=== PATIENT | male | born 1955 | race Caucasian/White ===

== ENCOUNTER 2020-09-30 18:13 | Emergency (ER) | payer MEDICARE ==
[2020-09-30] MEDS ORDERED: methylPREDNISolone Sod Succ 125 MG in Dextrose 5% in Water 100 ML IV ONE ×2 (19:00)
--- NOTE | 2020-09-30 19:04 | EDM.PDOC ---
ED HPI GENERAL MEDICAL PROBLEM - General Chief Complaint: Allergic Reaction Stated Complaint: MED[facility] Time Seen by Provider: 09/30/20 18:27 Source of Information: Reports: Patient, EMS Notes Reviewed, Family ( at bedside), RN History Limitations: Reports: No Limitations - History of Present Illness INITIAL COMMENTS - FREE TEXT/NARRATIVE: Patient presents emergency room via EMS secondary to a sting reaction that occurred. [place] the [place] stung him on his right elbow he is not sure what the insect was. He does state that he was stung approximately 3 weeks ago by a bee and had no problems or reactions of concern. He states that he had eye swelling tongue swelling chest tightness and hands itching. States he also feels like his upper lip and his nose is numb and he initially had some hives on his abdomen. States that he took 50 of Benadryl oral as well as 2 Pepcid [id number] tablets as recommended by a medic that was at the park when incident occurred. EMS was called and an EpiPen was administered x1 as well as 25 mg of Benadryl was given IV. Patient states that abdominal itching hives have improved he does not have the chest tightness his tongue still feels swollen as well as his eyes/eyelids are swollen he says his nose is somewhat numb and numb still as well as his upper lip PMH--HTN, HLP, decreased hearing, GERD Meds--lisionopril, atorvastatin, norvasc, ASA, pepcid, MVI Tob--former EtOH--2-3 drinks/day Drugs--denies has not had COVID infection, reports receiving the COVID immunization - Related Data Allergies Allergy/AdvReac Type Severity Reaction Status Date / Time No Known Allergies Allergy Verified 09/30/20 18:16 Home Meds: Home Meds Calcium Carbonate [Calcium] 500 mg PO BEDTIME 09/30/20 [History] Lisinopril/Hydrochlorothiazide [Lisinopril-Hctz 20-25 mg Tab] 1 tab PO DAILY 09/30/20 [History] amLODIPine [Norvasc] 10 mg PO DAILY 09/30/20 [History] atorvaSTATin [Lipitor] 20 mg PO DAILY 09/30/20 [History] Past Medical History Cardiovascular History: Reports: Hypertension Gastrointestinal History: Reports: None - Past Surgical History Head Surgeries/Procedures: Reports: None Cardiovascular Surgical History: Reports: None GI Surgical History: Reports: Hernia Repair/Other Dermatological Surgical History: Reports: None Social & Family History - Tobacco Use Tobacco Use Status *Q: Former Tobacco User Years of Tobacco use: 20 Used Tobacco, but Quit: Yes Month/Year Tobacco Last Used: 1989 - Caffeine Use Caffeine Use: Reports: Coffee, Soda - Alcohol Use Days Per Week of Alcohol Use: 7 Number of Drinks Per Day: 2 Total Drinks Per Week: 14 - Recreational Drug Use Recreational Drug Use: No ED ROS ALLERGIC REACTION - Review of Systems Review Of Systems: Comprehensive ROS is negative, except as noted in HPI. HEENT: Reports: Other (With noted sensation of tongue swelling lip and nose numbness denies any throat swelling scratchiness or discomfort discomfort or feeling like it swelling shot also reports eyelid swelling) Respiratory: Reports: No Symptoms. Denies: Shortness of Breath, Wheezing, Cough Cardiovascular: Reports: Other (Reported chest tightness sensation after initial sting occurred) Skin: Reports: Other (Reports hands itchy hives on his abdomen initially after sting occurred) ED EXAM GENERAL NO PERIP PULSE - Physical Exam Exam: See Below Exam Limited By: No Limitations General Appearance: Alert, WD/WN, No Apparent Distress Eye Exam: Bilateral Eye: EOMI, Periorbital Changes (As noted bilateral eyelid edema Slee upper lids but also noted in the lower lid area), PERRL Ears: Normal External Exam, Normal Canal, Hearing Grossly Normal, Normal TMs Nose: Normal Inspection, Normal Mucosa Throat/Mouth: Normal Inspection, Normal Lips, Normal Teeth, Normal Gums, Normal Oropharynx, No Airway Compromise, Other (As noted tongue thickening/swelling each is noted to be somewhat thick in nature but it is understandable) Head: Atraumatic, Normocephalic Neck: Normal Inspection, Supple, Non-Tender, Full Range of Motion. No: Limited Range of Motion, Lymphadenopathy (R), Lymphadenopathy (L) Respiratory/Chest: Lungs Clear (No wheeze to exam no wheeze to forced expiration), Normal Breath Sounds, Other (Is noted to be on oxygen therapy 2 L nasal cannula as received from EMS he is satting 93 to 94% no respiratory difficulty shortness of breath). No: No Respiratory Distress Cardiovascular: Normal Peripheral Pulses, Regular Rate, Rhythm, No Murmur GI/Abdominal: Normal Bowel Sounds, Soft, Non-Tender, No Distention (Male) Exam: Deferred Rectal (Males) Exam: Deferred Back Exam: Normal Inspection, Full Range of Motion Extremities: Normal Inspection, Normal Range of Motion, No Pedal Edema, Normal Capillary Refill, Other (With noted right elbow tenderness on palpation secondary to sting injury and some mild edema in the area) Neurological: Alert, Oriented, CN II-XII Intact, Normal Cognition, Normal Gait, Normal Reflexes, No Motor/Sensory Deficits Psychiatric: Normal Affect, Normal Mood Skin Exam: Warm, Dry, Intact, Normal Color, No Rash Course - Vital Signs Text/Narrative:: 1952--recheck patient states he feels improved no longer feels like he has the tongue or lip swelling sensation he does have some minimal eyelid swelling denie s any lip or nose numbness at this time. At this time we will remove patient from oxygen therapy that was placed he has received IV Solu-Medrol by nursing here in the emergency room. If able to tolerate ambulation without any need for supplemental oxygen as long as pulse ox greater than 90% we will plan for discharge within the next hour patient and verbalized understanding agreement with plan of care 2011--RN walked patient in [place] with pulse oximetry noted to have pulse ox of 94% on room air with ambulation no respiratory difficulty was noted at this time patient will be ready for discharge Last Recorded V/S: Last Vital Signs Temp 98.8 F 09/30/20 18:21 Pulse 99 09/30/20 18:21 Resp 18 09/30/20 18:21 BP 147/82 H 09/30/20 18:21 Pulse Ox 92 L 09/30/20 18:21 - Orders/Labs/Meds Meds: Medications Discontinued Medications Generic Name Dose Route Start Last Admin Trade Name Freq PRN Reason Stop Dose Admin Methylprednisolone Sodium 102 mls @ 200 mls/hr 09/30/20 19:00 09/30/20 19:15 Succinate 125 mg/ Dextrose/ IV 09/30/20 19:31 200 mls/hr Water ONETIME ONE Administration Departure - Departure Time of Disposition: 20:13 Disposition: Home, Self-Care 01 Condition: Good Clinical Impression: Insect sting allergy, current reaction - Discharge Information *PRESCRIPTION DRUG MONITORING PROGRAM REVIEWED*: Not Applicable *COPY OF PRESCRIPTION DRUG MONITORING REPORT IN PATIENT ROSANGELA: Not Applicable Instructions: Bronchospasm, Adult, [id number], Anaphylactic Reaction, Adult Referrals: PCP,None [Primary Care Provider] - Forms: ED Department Discharge Additional Instructions: [id number] Benadryl these are 25 mg tablets take 1-2 capsules every 6 hours for the next 24 to 48 hours and then as needed. Please note that this medication will cause drowsiness and you should not drive when taking this medication [id number] Pepcid or famotidine take 20 mg twice a day for the next 1 to 2 days and then as needed You have been provided a prescription for a zone tablets, this is a tapering dose take all tablets in the morning with breakfast starting tomorrow morning You have been provided a prescription for EpiPen's, is recommended that you take this to your primary care clinic for further instruction on use by the clinic nurse as they usually have a demonstration package available or the pharmacist may be able to provide demonstration instructions for you please ask when picking up the medications It is recommended that you follow-up with your primary care provider in the next 3 to 5 days for today's ER visit and ongoing care regarding insect allergy, likely bee sting allergy reaction and need for further testing as this may require referral to allergy medicine May use ice/cold compresses to your right elbow for any pain swelling or discomfort this should subside in the next 7 to 10 days as reaction symptoms improve Sepsis Event Note (ED) - Evaluation Sepsis Screening Result: No Definite Risk - Focused Exam Vital Signs: Vital Signs Temp Pulse Resp BP Pulse Ox 09/30/20 18:21 98.8 F 99 18 147/82 H 92 L 09/30/20 18:18 98.8 F 99 18 147/82 H 92 L
== END 2020-09-30 20:34 | disposition home or self-care (01) ==
LOC: JP.ED 18:13
DX: S50.361A Insect bite (nonvenomous) of right elbow, initial encounter (principal); K21.9 Gastro-esophageal reflux disease without esophagitis; I10 Essential (primary) hypertension; Z79.82 Long term (current) use of aspirin; Z79.899 Other long term (current) drug therapy; Z87.891 Personal history of nicotine dependence; W57.XXXA Bitten or stung by nonvenomous insect and other nonvenomous arthropods, initial encounter
CPT/HCPCS: 96365; 99283; J2930